=== PATIENT | female | born 1965 | race Caucasian/White ===

== ENCOUNTER 2016-11-18 04:53 | Inpatient (IN) | payer OTHER ==
[~2016-11-18] VITALS: Ht 165.1 cm; Wt 90.0 kg
[~2016-11-18 04:53] MED LIST: PHOSLO667 MG PO
[2016-11-18] MEDS ORDERED: ASPIRIN81 MG PO (07:13)
[2016-11-18] MEDS ORDERED: LIPITOR TAB 2020 MG PO (07:13)
[2016-11-18] MEDS ORDERED: COREG 12.5MG12.5 MG PO (07:14)
[2016-11-18] MEDS ORDERED: HYDRALAZINE HCL25 MG PO (07:14)
[2016-11-18] MEDS ORDERED: PLAVIX 75 MG TA75 MG PO (07:15)
[2016-11-18] MEDS ORDERED: ISOSORBIDE MONO60 MG PO (07:19)
[2016-11-18] MEDS ORDERED: NITROSTAT0.4 MG PO (07:19)
[2016-11-18] MEDS ORDERED: NORVASC 5 MG TAB5 MG PO (07:20)
[2016-11-18] MEDS ORDERED: NOVOLIN 70100 UNIT/1 SQ (07:21)
[2016-11-20 03:29] LABS: HEMOGLOBIN 10.8 gm/dl (12.3-15.3); RED BLOOD COUNT 3.63 M/UL (4.00-5.10); WHITE BLOOD COUNT 9.9 K/UL (4.5-11.0)
[2016-11-21 04:51] LABS: HEMOGLOBIN 10.7 gm/dl (12.3-15.3); RED BLOOD COUNT 3.69 M/UL (4.00-5.10)
[2016-11-21 04:54] LABS: WHITE BLOOD COUNT 5.4 K/UL (4.5-11.0)
[2016-11-22] MEDS ORDERED: ENSURE LIQUID237 ML PO (14:26)
[2016-11-22] MEDS ORDERED: PHOSLO 667 MG667 MG PO (14:26)
[2016-11-22] MEDS ORDERED: VITAMIN D1000 UNIT PO (14:27)
[2017-02-15] MEDS ORDERED: RENVELA800 MG PO (20:29)
[2017-02-15] MEDS ORDERED: NOVOLOG100 UNIT/1 SQ (20:30)
== END 2016-11-22 16:11 | disposition home or self-care (01) | DRG 682 ==
LOC: M/S 07:05 → CCU 07:05 → M/S 11-20 19:43
PROVIDERS: Internal Medicine Nephrology; ADMIT Internal Medicine
PROC: 5A1D60Z (ICD-10-PCS; principal; 2016-11-18)
DX: I12.0 Hypertensive chronic kidney disease with stage 5 chronic kidney disease or end stage renal disease (principal); N18.6 End stage renal disease; I16.0 Hypertensive urgency; E11.22 Type 2 diabetes mellitus with diabetic chronic kidney disease; E11.21 Type 2 diabetes mellitus with diabetic nephropathy; E11.65 Type 2 diabetes mellitus with hyperglycemia; I25.10 Atherosclerotic heart disease of native coronary artery without angina pectoris; R07.9 Chest pain, unspecified; R74.8 Abnormal levels of other serum enzymes; J44.9 Chronic obstructive pulmonary disease, unspecified; E78.5 Hyperlipidemia, unspecified; D64.9 Anemia, unspecified; F17.200 Nicotine dependence, unspecified, uncomplicated; Z98.61 Coronary angioplasty status; Z99.2 Dependence on renal dialysis; Z91.19 Patient's noncompliance with other medical treatment and regimen; Z79.02 Long term (current) use of antithrombotics/antiplatelets; Z79.82 Long term (current) use of aspirin; Z79.4 Long term (current) use of insulin; Z79.899 Other long term (current) drug therapy; Z82.3 Family history of stroke; Z82.49 Family history of ischemic heart disease and other diseases of the circulatory system
CPT/HCPCS: ECHO; 36415; 71010; 74000; 80053; 80061; 80069; 82550; 82553; 82728; 82962; 83540; 83550; 84100; 84484; 85027; 85730; 90935; 90937; 93005; 93306; J1644; J2405; J7030